=== PATIENT | female | born 1990 | race Caucasian/White ===

== ENCOUNTER 2017-01-30 19:05 | Emergency (ER) | payer SELFPAY ==
--- NOTE | 2017-01-30 19:23 | ER Document Report ---
ED Medical Screen (RME) - General Chief Complaint: Abdominal Pain Stated Complaint: ABDOMINAL PAIN Time Seen by Provider: 01/30/17 19:20 Notes: 26-year-old female patient complains of upper abdominal pain for 1 week with nausea, vomiting, and constipation. TRAVEL OUTSIDE OF THE [place] IN LAST 30 DAYS: No - Related Data Allergies/Adverse Reactions: No Known Allergies Allergy (Verified 01/30/17 19:17) Past Medical History Pulmonary Medical History: Reports: Hx Asthma Renal/ Medical History: Denies: Hx Peritoneal Dialysis Psychiatric Medical History: Reports: Hx Depression Past Surgical History: Reports: Hx Cholecystectomy, Hx Orthopedic Surgery - left radial/ ulnar fx rods placed, Hx Tonsillectomy - Immunizations Hx Diphtheria, Pertussis, Tetanus Vaccination: Yes Physical Exam - Vital signs Vitals: Temp Pulse Resp BP Pulse Ox 99.2 F 80 16 149/100 H 99 01/30/17 19:11 01/30/17 19:11 01/30/17 19:11 01/30/17 19:11 01/30/17 19:11 Course - Vital Signs Vital signs: Temp Pulse Resp BP Pulse Ox 99.2 F 80 16 149/100 H 99 01/30/17 19:11 01/30/17 19:11 01/30/17 19:11 01/30/17 19:11 01/30/17 19:11
[2017-01-30] MEDS ORDERED: METOCLOPRAMIDE HCL INJ/PF 10 MG/2 ML SDV IV ONE (20:06)
[2017-01-30] MEDS ORDERED: NORMAL SALINE 1000 ML 1,000 ML IV PRN (20:06)
[2017-01-30] MEDS ORDERED: DIPHENHYDRAMINE HCL 50 MG/ML VIAL IV ONE (20:06)
--- NOTE | 2017-01-30 20:10 | ER Document Report ---
ED General - General Chief Complaint: Abdominal Pain Stated Complaint: ABDOMINAL PAIN Time Seen by Provider: 01/30/17 19:20 Mode of Arrival: Ambulatory Information source: Patient Notes: The patient is a 26-year-old female who presents to the emergency room with nausea, vomiting, constipation and abdominal pain for the past 4 days. Patient states she was usual state of health until Thursday when her symptoms developed. She states she is normally very regular as far as her bowel movements but is been constipated. She does have a history of a cholecystectomy in the past. She denies any fever. She denies any vaginal discharge. She has a history of very irregular periods. TRAVEL OUTSIDE OF THE [place] IN LAST 30 DAYS: No - HPI Onset: Last week Onset/Duration: Gradual Quality of pain: Dull Severity: Moderate Associated symptoms: Nausea, Vomiting. denies: Chest pain, Fever, Shortness of breath Exacerbated by: Denies Relieved by: Denies Similar symptoms previously: Yes Recently seen / treated by doctor: No - Related Data Allergies/Adverse Reactions: No Known Allergies Allergy (Verified 01/30/17 19:17) Past Medical History - General Information source: Patient - Social History Smoking Status: Current Some Day Smoker Cigarette use (# per day): No Chew tobacco use (# tins/day): No Frequency of alcohol use: None Drug Abuse: None Lives with: Family Family History: Reviewed & Not Pertinent Patient has suicidal ideation: No Patient has homicidal ideation: No Pulmonary Medical History: Reports: Hx Asthma Endocrine Medical History: Reports: Hx Diabetes Mellitus Type 2 Renal/ Medical History: Denies: Hx Peritoneal Dialysis Psychiatric Medical History: Reports: Hx Depression Past Surgical History: Reports: Hx Cholecystectomy, Hx Orthopedic Surgery - left radial/ ulnar fx rods placed, Hx Tonsillectomy - Immunizations Hx Diphtheria, Pertussis, Tetanus Vaccination: Yes Review of Systems - Review of Systems Constitutional: denies: Chills, Fever EENT: No symptoms reported Cardiovascular: No symptoms reported Respiratory: No symptoms reported Gastrointestinal: See HPI Genitourinary: No symptoms reported Female Genitourinary: No symptoms reported Musculoskeletal: No symptoms reported Skin: No symptoms reported Hematologic/Lymphatic: No symptoms reported Neurological/Psychological: No symptoms reported Physical Exam - Vital signs Vitals: Temp Pulse Resp BP Pulse Ox 99.2 F 80 16 149/100 H 99 01/30/17 19:11 01/30/17 19:11 01/30/17 19:11 01/30/17 19:11 01/30/17 19:11 Notes: Physical exam: GENERAL: 26-year-old female, alert and oriented 3, complaining of left upper quadrant pain. HEAD: Atraumatic, normocephalic. EYES: Pupils equal round and reactive to light, extraocular movements intact, sclera anicteric, conjunctiva are normal. ENT: TMs normal, nares patent, oropharynx clear without exudates. Moist mucous membranes. NECK: Normal range of motion, supple without lymphadenopathy or JVD. LUNGS: Breath sounds clear to auscultation bilaterally and equal. No wheezes rales or rhonchi. HEART: Regular rate and rhythm without murmurs, rubs or gallops. ABDOMEN: Soft, normoactive bowel sounds. Patient does have tenderness in the left upper quadrant. No guarding, no rebound. No masses appreciated. Rectal: Brown stool, no masses, stool sent for study. EXTREMITIES: Normal range of motion, no pitting or edema. No clubbing or cyanosis. NEUROLOGICAL: Cranial nerves II through XII grossly intact. Normal speech, normal gait. PSYCH: Normal mood, normal affect. SKIN: Warm, Dry, normal turgor, no rashes or lesions noted. Course - Vital Signs Vital signs: Temp Pulse Resp BP Pulse Ox 97.9 F 84 18 138/95 H 99 01/30/17 23:49 01/30/17 23:49 01/30/17 23:49 01/30/17 23:49 01/30/17 23:49 - Laboratory Result Diagrams: 01/30/17 20:29 01/30/17 20:29 Laboratory results interpreted by me: 01/30/17 01/30/17 20:29 20:29 WBC 13.2 H RDW 14.6 H Absolute Neutrophils 9.1 H Total Bilirubin 1.6 H - Diagnostic Test Radiology reviewed: Image reviewed, Reports reviewed - CT of the abdomen shows no acute intra-abdominal process Discharge - Discharge Clinical Impression: Abdominal pain Condition: Stable Disposition: HOME, SELF-CARE Instructions: Abdominal Pain ([facility]) Additional Instructions: As we discussed, the CT of the abdomen as well as your labs looked quite good. Rest, drink plenty of fluids. Advance diet as tolerated. Try probiotics: Activitia (sold next to the milk and [employer]) twice daily for 2 weeks. Return to the emergency room for worsening pain, fever, pain moving to the right lower side. Take Reglan for nausea Prescriptions: Metoclopramide HCl [Reglan 10 mg Tablet] 1 - 2 tab PO ASDIR PRN #25 tablet PRN Reason: Referrals: VELMA LAURA DO [Primary Care Provider] - Follow up in 3-5 days
[2017-01-30 20:43] LABS: ABSOLUTE BASOPHILS # (AUTO) 0.1 10^3/uL (0.0-0.2); ABSOLUTE EOSINOPHILS # (AUTO) 0.2 10^3/uL (0.0-0.6); ABSOLUTE MONOCYTES (AUTO) 0.8 10^3/uL (0.1-1.4); ABSOLUTE NEUT (AUTO) 9.1 10^3/uL (1.7-8.2); BASOPHILS % (AUTO) 1.1 % (0-2); EOSINOPHILS % (AUTO) 1.2 % (0-6); HEMATOCRIT 41.8 % (36.0-47.0); HEMOGLOBIN 13.5 g/dL (12.0-15.5); HGB HCT DIFFERENCE -1.3; MEAN CORPUSCULAR HEMOGLOBIN 27.3 pg (27.0-33.4); MEAN CORPUSCULAR HGB CONC 32.4 g/dL (32.0-36.0); MEAN CORPUSCULAR VOLUME 84 fl (80-97); MONOCYTES % (AUTO) 5.8 % (3-13); RED BLOOD COUNT 4.96 10^6/uL (3.72-5.28); RED CELL DISTRIBUTION WIDTH 14.6 % (11.5-14.0); SEGMENTED NEUTROPHILS % (AUTO) 68.9 % (42-78); WHITE BLOOD COUNT 13.2 10^3/uL (4.0-10.5)
[2017-01-30 21:08] LABS: ALANINE AMINOTRANSFERASE 43 U/L (9-52); ALBUMIN 4.2 g/dL (3.5-5.0); ALKALINE PHOSPHATASE 79 U/L (38-126); ANION GAP 12 (5-19); ASPARTATE AMINO TRANSFERASE 35 U/L (14-36); BILIRUBIN,DIRECT 0.4 mg/dL (0.0-0.4); BILIRUBIN,TOTAL 1.6 mg/dL (0.2-1.3); BLOOD UREA NITROGEN 7 mg/dL (7-20); CALCIUM 9.2 mg/dL (8.4-10.2); CARBON DIOXIDE 23 mmol/L (22-30); CHLORIDE 106 mmol/L (98-107); CREATININE RESULT 0.88 mg/dL (0.52-1.25); GLUCOSE 89 mg/dL (75-110); LIPASE 59.4 U/L (23-300); POTASSIUM 3.7 mmol/L (3.6-5.0); SODIUM 140.7 mmol/L (137-145); TOTAL PROTEIN 7.7 g/dL (6.3-8.2)
--- NOTE | 2017-01-30 22:59 | RADIOLOGY REPORT (SQ) ---
EXAM DESCRIPTION: CT ABD/PELVIS WITH IV ORAL COMPLETED DATE/TIME: 01/30/2017 10:44 pm REASON FOR STUDY: abd pain COMPARISON: 03/13/2015 TECHNIQUE: CT scan of the abdomen and pelvis performed using helical scanning technique with dynamic intravenous contrast injection. No oral contrast. Images reviewed with lung, soft tissue, and bone windows. Reconstructed coronal and sagittal MPR images reviewed. Delayed images for evaluation of the urinary system also acquired. All images stored on PACS. All CT scanners at this facility use dose modulation, iterative reconstruction, and/or weight based d osing when appropriate to reduce radiation dose to as low as reasonably achievable (ALARA). [facility]: Dose Right [facility]: CareDose [facility]: Dose Right [facility]: Teradose 4D [facility]: [employer]fter CONTRAST TYPE AND DOSE: contrast/concentration: Isovue 370.00 mg/ml; Total Contrast Delivered: 100.0 ml; Total Saline Delivered: 72.0 ml RENAL FUNCTION: GFR > 60. RADIATION DOSE: Up-to-date CT equipment and radiation dose reduction techniques were employed. CTDIv ol: 29.7 - 30.0 mGy. DLP: 3447 mGy-cm.. LIMITATIONS: None. FINDINGS: LOWER CHEST: No significant findings. No nodules or infiltrates. LIVER: Normal size. No masses. No dilated ducts. SPLEEN: Normal size. No focal lesions. PANCREAS: No masses. No significant calcifications. No adjacent inflammation or peripancreatic fluid collections. Pancreatic duct not dilated. GALLBLADDER: No identified stones by CT criteria. No inflammatory changes to suggest cholecystitis. ADRENAL GLANDS: No significant masses or asymmetry. RIGHT KIDNEY AND URETER: No solid masses. No significant calcifications. No hydronephrosis or hyd roureter. LEFT KIDNEY AND URETER: No solid masses. Tiny cyst. No significant calcifications. No hydronephro sis or hydroureter. AORTA AND VESSELS: No aneurysm. No dissection. Renal arteries, SMA, celiac without stenosis. RETROPERITONEUM: No retroperitoneal adenopathy, hemorrhage or masses. BOWEL AND PERITONEAL CAVITY: No masses or inflammatory changes. No free fluid or peritoneal masses. APPENDIX: Normal. PELVIS: No mass. No free fluid. Normal bladder. ABDOMINAL WALL: No masses. No hernias. BONES: No significant or acute findings. OTHER: No other significant finding. IMPRESSION: NO ACUTE FINDING IN THE ABDOMEN OR PELVIS ON CT SCAN WITH IV CONTRAST. TECHNICAL DOCUMENTATION: JOB ID: [id number] Quality ID # [id number]: Final reports with documentation of one or more dose reduction techniques (e.g., Au tomated exposure control, adjustment of the mA and/or kV according to patient size, use of iterative reconstruction technique) 2010 [employer]- All Rights Reserved
[2017-01-30 23:52] VITALS: BP 138/95
== END 2017-01-30 23:49 | disposition home or self-care (01) ==
LOC: ER 19:05
DX: R10.9 Unspecified abdominal pain (principal); R11.2 Nausea with vomiting, unspecified; K59.00 Constipation, unspecified; Z98.890 Other specified postprocedural states; F17.200 Nicotine dependence, unspecified, uncomplicated
CPT/HCPCS: 99284; 96361; 96374; 96375; 36415; 84702; 83690; 85025; 82272; 80053; 74177; J1200; J2765; J7030

== ENCOUNTER 2017-10-01 10:03 | Emergency (ER) | payer SELFPAY ==
[2017-10-01] MEDS ORDERED: MAG HYDROX/AL HYDROX/SIMETH SUSP 30 ML UDCUP PO ONE (10:55)
[2017-10-01] MEDS ORDERED: LIDOCAINE 2% VISCOUS SOLN 20 ML UDCUP PO ONE (10:55)
[2017-10-01] MEDS ORDERED: METOCLOPRAMIDE HCL ORAL SOLN 10 MG/10 ML UDCUP PO ONE (10:55)
--- NOTE | 2017-10-01 10:56 | ER Document Report ---
ED GI/ - General Mode of Arrival: Ambulatory Information source: Patient TRAVEL OUTSIDE OF THE [place] IN LAST 30 DAYS: No - General Chief Complaint: Abdominal Pain Stated Complaint: VOMITING Time Seen by Provider: 10/01/17 10:34 Notes: Patient is a 26-year-old female who presents to the emergency department today with complaints of left upper quadrant abdominal pain. Patient states "there sometimes is a bump there". Patient states she has had the pain for 2 days and the pain comes and goes. Patient states her pain is exacerbated with movement. Patient goes on to mention that she has had unexplained vomiting in the mornings daily for the last 6 months. Patient mentions that she sometimes has a sour taste in her mouth as well. Patient denies dysuria or fevers. (PAMELA GEIGER) - Related Data Allergies/Adverse Reactions: No Known Allergies Allergy (Verified 04/17/17 23:29) Past Medical History - General Information source: Patient - Social History Smoking Status: Current Every Day Smoker Cigarette use (# per day): Yes Chew tobacco use (# tins/day): No Frequency of alcohol use: None Drug Abuse: None Lives with: Family Family History: Reviewed & Not Pertinent Patient has suicidal ideation: No Patient has homicidal ideation: No Pulmonary Medical History: Reports: Hx Asthma Endocrine Medical History: Reports: Hx Diabetes Mellitus Type 2 Psychiatric Medical History: Reports: Hx Depression Past Surgical History: Reports: Hx Cholecystectomy, Hx Orthopedic Surgery - left radial/ ulnar fx rods placed, Hx Tonsillectomy - Immunizations Hx Diphtheria, Pertussis, Tetanus Vaccination: Yes Review of Systems - Review of Systems Constitutional: denies: Fever EENT: No symptoms reported Cardiovascular: No symptoms reported Respiratory: No symptoms reported Gastrointestinal: See HPI, Abdominal pain Genitourinary: denies: Dysuria Female Genitourinary: No symptoms reported Musculoskeletal: No symptoms reported Skin: No symptoms reported Hematologic/Lymphatic: No symptoms reported Neurological/Psychological: No symptoms reported -: Yes All other systems reviewed and negative Physical Exam - Vital signs Vitals: Temp Pulse Resp BP Pulse Ox 97.9 F 68 14 141/82 H 99 10/01/17 10:12 10/01/17 10:12 10/01/17 10:12 10/01/17 10:12 10/01/17 10:12 - Notes Notes: Physical Exam: General: Alert, appears well. HEENT: Normocephalic. Atraumatic. PERRL. Extraocular movements intact. Oropharynx clear. Neck: Supple. Non-tender. Respiratory: No respiratory distress. Clear and equal breath sounds bilaterally. Cardiovascular: Regular rate and rhythm. Abdominal: Mild LUQ tenderness with palpation, no hernias palpated. No distension. Normal Bowel Sounds. Back: Non-tender. No deformity or step off. Extremities: Moves all four extremities. Upper extremities: Normal inspection. Normal ROM. Lower extremities: Normal inspection. No edema. Normal ROM. Neurological: Normal cognition. AAOx4. Normal speech. Psychological: Normal affect. Normal Mood. Skin: Warm. Dry. Normal color. (PAMELA GEIGER) Course - Re-evaluation Re-evalutation: 10/01/17 13:07 Patient u/s shows no acute findings, 2 day of pain, worse with movement. Will provide Zantac due to 6 months of unexplained vomiting. Will also provide 5 day steriod dose pack for MSK pain. Patient is to f/u with PCP in one week for re- evaluation. (HYUN VILLASENOR) - Vital Signs Vital signs: Temp Pulse Resp BP Pulse Ox 97.9 F 68 14 141/82 H 99 10/01/17 10:12 10/01/17 10:12 10/01/17 10:12 10/01/17 10:12 10/01/17 10:12 - Laboratory Laboratory results interpreted by me: 10/01/17 11:05 Urine Urobilinogen 2.0 H Discharge - Discharge Clinical Impression: Muscular abdominal pain in left flank Nausea & vomiting Qualifiers: Vomiting type: vomiting of fecal matter Qualified Code(s): R11.13 - Vomiting of fecal matter Instructions: Abdominal Pain ([facility]), Antinausea Medication ([facility]) Additional Instructions: Please take medications as prescribed, follow up with your primary care physician in one week for re-evalution. Prescriptions: Prednisone [Deltasone 20 mg Tablet] 40 mg PO DAILY 5 Days #10 tablet Ranitidine HCl [Zantac] 150 mg PO BID #60 tablet Scribe Documentation - Scribe Written by Za:: Za To, 10/01/2017, 1531 acting as scribe for :: Harpreet
[2017-10-01 11:28] LABS: APPEARANCE,URINE SLIGHTLY-CLOUDY; BILIRUBIN,URINE NEGATIVE (NEGATIVE); COLOR,URINE YELLOW; GLUCOSE, URINE NEGATIVE (NEGATIVE); KETONES,URINE NEGATIVE (NEGATIVE); LEUKOCYTE ESTERASE,URINE NEGATIVE (NEGATIVE); NITRITE,URINE NEGATIVE (NEGATIVE); PROTEIN,URINE NEGATIVE (NEGATIVE); URINE SPECIFIC GRAVITY 1.025
--- NOTE | 2017-10-01 13:01 | RADIOLOGY REPORT (SQ) ---
EXAM DESCRIPTION: U/S ABDOMEN LIMITED W/O DOP COMPLETED DATE/TIME: 10/01/2017 12:27 pm REASON FOR STUDY: LUQ pain, TTP, r/o hernia COMPARISON: None. TECHNIQUE: Static and real time fournier scale ultrasound images acquired of the left upper quadrant. Ad ditional color Doppler images acquired. LIMITATIONS: None. FINDINGS: MEASUREMENTS: The spleen measures 10.7 cm. No splenic masses are identified. ADJACENT SOFT TISSUES: Normal. No hernia sac is identified. OTHER: The left kidney measures 10.6 cm in length. No left renal abnormalities are identified. IMPRESSION: No significant findings. TECHNICAL DOCUMENTATION: JOB ID: [id number] [employer]- All Rights Reserved Reading location - IP/workstation name: [email or web address]
[2017-10-01 13:50] VITALS: BP 144/95
== END 2017-10-01 13:40 | disposition home or self-care (01) ==
LOC: ER 10:03
DX: R10.12 Left upper quadrant pain (principal); R11.10 Vomiting, unspecified; F17.210 Nicotine dependence, cigarettes, uncomplicated; E11.9 Type 2 diabetes mellitus without complications; Z90.49 Acquired absence of other specified parts of digestive tract
CPT/HCPCS: 99284; 81001; 76705; J3490

== ENCOUNTER 2017-10-07 11:03 | Emergency (ER) | payer SELFPAY ==
--- NOTE | 2017-10-07 11:16 | ER Document Report ---
ED Medical Screen (RME) - General Chief Complaint: Abdominal Pain Stated Complaint: ABDOMINAL PAIN Time Seen by Provider: 10/07/17 11:15 Notes: pt states she has painful mass on left side that increases in pain when she eats or bends. TRAVEL OUTSIDE OF THE [place] IN LAST 30 DAYS: No - Related Data Allergies/Adverse Reactions: No Known Allergies Allergy (Verified 10/07/17 11:06) Past Medical History Pulmonary Medical History: Reports: Hx Asthma Endocrine Medical History: Reports: Hx Diabetes Mellitus Type 2 Renal/ Medical History: Denies: Hx Peritoneal Dialysis Psychiatric Medical History: Reports: Hx Depression Past Surgical History: Reports: Hx Cholecystectomy, Hx Orthopedic Surgery - left radial/ ulnar fx rods placed, Hx Tonsillectomy - Immunizations Hx Diphtheria, Pertussis, Tetanus Vaccination: Yes Physical Exam - Vital signs Vitals: Temp Pulse Resp BP Pulse Ox 98.0 F 82 20 126/72 H 98 10/07/17 11:08 10/07/17 11:08 10/07/17 11:08 10/07/17 11:08 10/07/17 11:08 Course - Vital Signs Vital signs: Temp Pulse Resp BP Pulse Ox 98.0 F 82 20 126/72 H 98 10/07/17 11:08 10/07/17 11:08 10/07/17 11:08 10/07/17 11:08 10/07/17 11:08
[2017-10-07 11:47] LABS: ABSOLUTE BASOPHILS # (AUTO) 0.1 10^3/uL (0.0-0.2); ABSOLUTE EOSINOPHILS # (AUTO) 0.2 10^3/uL (0.0-0.6); ABSOLUTE LYMPHOCYTES (AUTO) 2.5 10^3/uL (0.5-4.7); ABSOLUTE MONOCYTES (AUTO) 0.5 10^3/uL (0.1-1.4); ABSOLUTE NEUT (AUTO) 6.5 10^3/uL (1.7-8.2); BASOPHILS % (AUTO) 0.8 % (0-2); EOSINOPHILS % (AUTO) 2.1 % (0-6); HEMATOCRIT 40.3 % (36.0-47.0); HEMOGLOBIN 13.4 g/dL (12.0-15.5); LYMPHOCYTES % (AUTO) 25.6 % (13-45); MEAN CORPUSCULAR HEMOGLOBIN 27.1 pg (27.0-33.4); MEAN CORPUSCULAR HGB CONC 33.2 g/dL (32.0-36.0); MEAN CORPUSCULAR VOLUME 82 fl (80-97); MONOCYTES % (AUTO) 5.5 % (3-13); PLATELET COUNT 360 10^3/uL (150-450); RED BLOOD COUNT 4.94 10^6/uL (3.72-5.28); RED CELL DISTRIBUTION WIDTH 14.9 % (11.5-14.0); TOTAL CELLS COUNTED % (AUTO) 100 %; WHITE BLOOD COUNT 9.9 10^3/uL (4.0-10.5)
[2017-10-07 11:48] LABS: APPEARANCE,URINE CLEAR; BILIRUBIN,URINE NEGATIVE (NEGATIVE); COLOR,URINE YELLOW; GLUCOSE, URINE NEGATIVE (NEGATIVE); KETONES,URINE NEGATIVE (NEGATIVE); LEUKOCYTE ESTERASE,URINE NEGATIVE (NEGATIVE); NITRITE,URINE NEGATIVE (NEGATIVE); PROTEIN,URINE NEGATIVE (NEGATIVE); URINE SPECIFIC GRAVITY 1.017; UROBILINOGEN,URINE NEGATIVE mg/dL (<2.0)
[2017-10-07 12:05] LABS: ALANINE AMINOTRANSFERASE 36 U/L (9-52); ALBUMIN 4.1 g/dL (3.5-5.0); ALKALINE PHOSPHATASE 61 U/L (38-126); ANION GAP 10 (5-19); ASPARTATE AMINO TRANSFERASE 19 U/L (14-36); BILIRUBIN,DIRECT 0.2 mg/dL (0.0-0.4); BILIRUBIN,TOTAL 0.7 mg/dL (0.2-1.3); BLOOD UREA NITROGEN 8 mg/dL (7-20); CALCIUM 9.7 mg/dL (8.4-10.2); CARBON DIOXIDE 30 mmol/L (22-30); CHLORIDE 104 mmol/L (98-107); GLUCOSE 100 mg/dL (75-110); POTASSIUM 4.7 mmol/L (3.6-5.0); SODIUM 143.6 mmol/L (137-145); TOTAL PROTEIN 7.1 g/dL (6.3-8.2)
--- NOTE | 2017-10-07 12:18 | ER Document Report ---
ED General - General Chief Complaint: Abdominal Pain Stated Complaint: ABDOMINAL PAIN Time Seen by Provider: 10/07/17 11:15 Mode of Arrival: Ambulatory Information source: Patient Notes: Patient presents with left-sided upper abdominal pain. She states that she feels a "mass" in this area. She states it hurts worse with bending over or eating. Patient was seen here approximately 6 days ago and had an ultrasound of the left upper quadrant. The ultrasound was unremarkable. She denies any trauma. No vomiting or diarrhea. No fevers. No other rashes. No problems with urination. Symptoms have been intermittent. The pain does radiate slightly upward. Symptoms of been mild to moderate. TRAVEL OUTSIDE OF THE [place] IN LAST 30 DAYS: No - Related Data Allergies/Adverse Reactions: No Known Allergies Allergy (Verified 10/07/17 11:06) Past Medical History - General Information source: Patient - Social History Smoking Status: Current Every Day Smoker Chew tobacco use (# tins/day): No Frequency of alcohol use: None Family History: Reviewed & Not Pertinent Patient has suicidal ideation: No Patient has homicidal ideation: No Pulmonary Medical History: Reports: Hx Asthma Endocrine Medical History: Reports: Hx Diabetes Mellitus Type 2 Renal/ Medical History: Denies: Hx Peritoneal Dialysis Psychiatric Medical History: Reports: Hx Depression Past Surgical History: Reports: Hx Cholecystectomy, Hx Orthopedic Surgery - left radial/ ulnar fx rods placed, Hx Tonsillectomy - Immunizations Hx Diphtheria, Pertussis, Tetanus Vaccination: Yes Review of Systems - Review of Systems Constitutional: denies: Chills, Fever Cardiovascular: denies: Chest pain, Palpitations Respiratory: denies: Cough, Short of breath -: Yes All other systems reviewed and negative Physical Exam - Vital signs Vitals: Temp Pulse Resp BP Pulse Ox 98.0 F 82 20 126/72 H 98 10/07/17 11:08 10/07/17 11:08 10/07/17 11:08 10/07/17 11:08 10/07/17 11:08 Interpretation: Normal - General General appearance: Appears well, Alert - HEENT Head: Normocephalic, Atraumatic Eyes: Normal Pupils: PERRL - Respiratory Respiratory status: No respiratory distress Chest status: Nontender Breath sounds: Normal Chest palpation: Normal - Cardiovascular Rhythm: Regular Heart sounds: Normal auscultation Murmur: No - Abdominal Inspection: Normal Distension: No distension Bowel sounds: Normal Tenderness: Tender, Other - Patient has a mildly tender small mobile mass in the left upper abdominal wall. Exam is most consistent with a lipoma. Organomegaly: No organomegaly - Back Back: Normal, Nontender - Extremities General upper extremity: Normal inspection, Nontender, Normal color, Normal ROM , Normal temperature General lower extremity: Normal inspection, Nontender, Normal color, Normal ROM , Normal temperature, Normal weight bearing. No: Raul's sign - Neurological Neuro grossly intact: Yes Cognition: Normal Orientation: AAOx4 [place] Coma Scale Eye Opening: Spontaneous [place] Coma Scale Verbal: Oriented [place] Coma Scale Motor: Obeys Commands Don Coma Scale Total: 15 Speech: Normal Motor strength normal: LUE, RUE, LLE, RLE Sensory: Normal - Psychological Associated symptoms: Normal affect, Normal mood - Skin Skin Temperature: Warm Skin Moisture: Dry Skin Color: Normal Course - Vital Signs Vital signs: Temp Pulse Resp BP Pulse Ox 98.0 F 82 20 126/72 H 98 10/07/17 11:08 10/07/17 11:08 10/07/17 11:08 10/07/17 11:08 10/07/17 11:08 - Laboratory Result Diagrams: 10/07/17 11:20 10/07/17 11:20 Laboratory results interpreted by me: 10/07/17 11:20 RDW 14.9 H Discharge - Discharge Clinical Impression: Lipoma Qualifiers: Lipoma location: trunk Qualified Code(s): D17.1 - Benign lipomatous neoplasm of skin and subcutaneous tissue of trunk Condition: Stable Disposition: HOME, SELF-CARE Prescriptions: Tramadol HCl [Ultram 50 mg Tablet] 50 mg PO Q4HP PRN 3 Days #12 tab PRN Reason: Referrals: SERGIO CAMPOS MD [Primary Care Provider] - Follow up in 3-5 days
[2017-10-07 12:42] VITALS: BP 124/76
== END 2017-10-07 12:58 | disposition home or self-care (01) ==
LOC: ER 11:03
DX: D17.1 Benign lipomatous neoplasm of skin and subcutaneous tissue of trunk (principal); R10.12 Left upper quadrant pain; F17.200 Nicotine dependence, unspecified, uncomplicated; J45.909 Unspecified asthma, uncomplicated; E11.9 Type 2 diabetes mellitus without complications; Z90.49 Acquired absence of other specified parts of digestive tract
CPT/HCPCS: 36415; 80053; 81001; 81025; 85025; 99284

== ENCOUNTER 2017-10-18 18:35 | Emergency (ER) | payer MEDICAID ==
--- NOTE | 2017-10-18 19:08 | EKG REPORT ---
SEVERITY:- NORMAL ECG - SINUS RHYTHM : Confirmed by: Tanner Mathis 18-Oct-2017 19:07:59
--- NOTE | 2017-10-18 19:19 | ER Document Report ---
ED Medical Screen (RME) - General Chief Complaint: Chest Pain Stated Complaint: ABDOMINAL PAIN,DIZZINESS,SHORT OF BREATH Time Seen by Provider: 10/18/17 19:10 Notes: 27-year-old morbidly obese female patient complaining of onset this morning of substernal chest pressure discomfort, and shortness of breath. Also she is more concerned about a painful lump in the lateral left upper quadrant of her abdomen. She has had this evaluated before, and told it was a lipoma however it is tender. Last menstrual period was in July, she says she can go up to 8-12 months without a period Lab work was ordered, was planning to do an IV contrast a CT scan of the abdomen to better evaluate this painful lump, but elected to get a d-dimer first on the outside chance that a scan of the chest might be needed. I have greeted and performed a rapid initial assessment of this patient. A comprehensive ED assessment and evaluation of the patient, analysis of test results and completion of the medical decision making process will be conducted by additional ED providers. TRAVEL OUTSIDE OF THE [place] IN LAST 30 DAYS: No - Related Data Allergies/Adverse Reactions: tramadol Adverse Reaction (Verified 10/18/17 18:41) Past Medical History - Social History Chew tobacco use (# tins/day): No Frequency of alcohol use: None Drug Abuse: None Pulmonary Medical History: Reports: Hx Asthma Endocrine Medical History: Reports: Hx Diabetes Mellitus Type 2 Renal/ Medical History: Denies: Hx Peritoneal Dialysis Psychiatric Medical History: Reports: Hx Depression Past Surgical History: Reports: Hx Cholecystectomy, Hx Orthopedic Surgery - left radial/ ulnar fx rods placed, Hx Tonsillectomy - Immunizations Hx Diphtheria, Pertussis, Tetanus Vaccination: Yes Physical Exam - Vital signs Vitals: Temp Pulse Resp BP Pulse Ox 97.9 F 96 18 138/94 H 98 10/18/17 18:51 10/18/17 18:51 10/18/17 18:51 10/18/17 18:51 10/18/17 18:51 Course - Vital Signs Vital signs: Temp Pulse Resp BP Pulse Ox 97.9 F 96 18 138/94 H 98 10/18/17 18:51 10/18/17 18:51 10/18/17 18:51 10/18/17 18:51 10/18/17 18:51
[2017-10-18 19:51] LABS: ABSOLUTE BASOPHILS # (AUTO) 0.1 10^3/uL (0.0-0.2); ABSOLUTE EOSINOPHILS # (AUTO) 0.4 10^3/uL (0.0-0.6); ABSOLUTE LYMPHOCYTES (AUTO) 3.3 10^3/uL (0.5-4.7); ABSOLUTE MONOCYTES (AUTO) 0.6 10^3/uL (0.1-1.4); ABSOLUTE NEUT (AUTO) 7.2 10^3/uL (1.7-8.2); BASOPHILS % (AUTO) 0.6 % (0-2); EOSINOPHILS % (AUTO) 3.4 % (0-6); HEMATOCRIT 41.1 % (36.0-47.0); HEMOGLOBIN 13.6 g/dL (12.0-15.5); LYMPHOCYTES % (AUTO) 28.8 % (13-45); MEAN CORPUSCULAR HGB CONC 33.1 g/dL (32.0-36.0); MEAN CORPUSCULAR VOLUME 82 fl (80-97); MONOCYTES % (AUTO) 5.1 % (3-13); PLATELET COUNT 396 10^3/uL (150-450); RED BLOOD COUNT 5.03 10^6/uL (3.72-5.28); RED CELL DISTRIBUTION WIDTH 14.4 % (11.5-14.0); SEGMENTED NEUTROPHILS % (AUTO) 62.1 % (42-78); TOTAL CELLS COUNTED % (AUTO) 100 %; WHITE BLOOD COUNT 11.6 10^3/uL (4.0-10.5)
[2017-10-18 19:54] LABS: APPEARANCE,URINE SLIGHTLY-CLOUDY; BILIRUBIN,URINE NEGATIVE (NEGATIVE); COLOR,URINE YELLOW; GLUCOSE, URINE NEGATIVE (NEGATIVE); KETONES,URINE NEGATIVE (NEGATIVE); LEUKOCYTE ESTERASE,URINE NEGATIVE (NEGATIVE); NITRITE,URINE NEGATIVE (NEGATIVE); PROTEIN,URINE NEGATIVE (NEGATIVE); URINE SPECIFIC GRAVITY 1.021; UROBILINOGEN,URINE NEGATIVE mg/dL (<2.0)
[2017-10-18] MEDS ORDERED: LIDOCAINE 2% VISCOUS SOLN 20 ML UDCUP PO ONE (20:03)
[2017-10-18] MEDS ORDERED: MAG HYDROX/AL HYDROX/SIMETH SUSP 30 ML UDCUP PO ONE (20:03)
--- NOTE | 2017-10-18 20:06 | ER Document Report ---
ED General - General Chief Complaint: Chest Pain Stated Complaint: ABDOMINAL PAIN,DIZZINESS,SHORT OF BREATH Time Seen by Provider: 10/18/17 19:10 Mode of Arrival: Ambulatory Information source: Patient Notes: Patient reports having chest pain that she describes as a tightness that started around 930 this morning. Patient complains of some mild shortness of breath. Patient denies any fever or cough. Patient does report a history of anxiety and panic attacks and states she has been off medicine for some time due to lack of insurance. Patient does report increased stress at home. Patient denies any recent travel, bedrest remobilization. Patient does report that she wakes up in the shading painter due to needing to vomit. Patient states she has been told before that she may have GERD. TRAVEL OUTSIDE OF THE [place] IN LAST 30 DAYS: No - HPI Onset: This morning Onset/Duration: Persistent Quality of pain: Other - Tightness Pain Level: 2 Associated symptoms: Chest pain. denies: Nausea, Vomiting, Sore throat Exacerbated by: Denies Relieved by: Denies Similar symptoms previously: No Recently seen / treated by doctor: No - Related Data Allergies/Adverse Reactions: tramadol Adverse Reaction (Verified 10/18/17 18:41) Past Medical History - General Information source: Patient - Social History Smoking Status: Current Every Day Smoker Chew tobacco use (# tins/day): No Smoking Education Provided: Yes Frequency of alcohol use: None Drug Abuse: None Occupation: None Lives with: Family Family History: Reviewed & Not Pertinent Patient has suicidal ideation: No Patient has homicidal ideation: No Pulmonary Medical History: Reports: Hx Asthma Renal/ Medical History: Denies: Hx Peritoneal Dialysis Psychiatric Medical History: Reports: Hx Anxiety, Hx Depression Past Surgical History: Reports: Hx Cholecystectomy, Hx Orthopedic Surgery - left radial/ ulnar fx rods placed, Hx Tonsillectomy - Immunizations Hx Diphtheria, Pertussis, Tetanus Vaccination: Yes Review of Systems - Review of Systems Constitutional: No symptoms reported. denies: Fever, Recent illness EENT: No symptoms reported Cardiovascular: Chest pain Respiratory: Short of breath. denies: Cough Gastrointestinal: No symptoms reported. denies: Abdominal pain, Nausea, Vomiting Genitourinary: No symptoms reported Female Genitourinary: No symptoms reported Musculoskeletal: No symptoms reported Skin: No symptoms reported Hematologic/Lymphatic: No symptoms reported Neurological/Psychological: Anxiety. denies: Homicidal ideation, Suicidal ideation Physical Exam - Vital signs Vitals: Temp Pulse Resp BP Pulse Ox 97.9 F 96 18 138/94 H 98 10/18/17 18:51 10/18/17 18:51 10/18/17 18:51 10/18/17 18:51 10/18/17 18:51 - General General appearance: Appears well, Alert, Anxious In distress: None - HEENT Head: Normocephalic Eyes: Normal Nasal: Normal Mouth/Lips: Normal Mucous membranes: Normal Neck: Normal, Supple - Respiratory Respiratory status: No respiratory distress Chest status: Tender Breath sounds: Normal Chest palpation: Tender - Chest pain reproducible with palpation. No: Ecchymosis - Cardiovascular Rhythm: Regular Heart sounds: S1 appreciated, S2 appreciated Murmur: No - Abdominal Inspection: Morbidly Obese Distension: No distension Bowel sounds: Normal Tenderness: Nontender Organomegaly: No organomegaly - Back Back: Normal, Nontender. No: CVA tenderness - Extremities General upper extremity: Normal inspection, Normal ROM General lower extremity: Normal inspection, Normal ROM - Neurological Neuro grossly intact: Yes Cognition: Normal [place] Coma Scale Eye Opening: Spontaneous [place] Coma Scale Verbal: Oriented [place] Coma Scale Motor: Obeys Commands Don Coma Scale Total: 15 - Psychological Associated symptoms: Anxious - Skin Skin Temperature: Warm Skin Moisture: Dry Skin Color: Normal Course - Re-evaluation Re-evalutation: 10/18/17 20:49 The patient has atypical chest pain as the patient's chest pain is not suggestive of pulmonary embolus, cardiac ischemia, aortic dissection, or other serious etiology. Given the extremely low risk of these diagnoses for the test in evaluation for these possibilities does not appear to be indicated at this time. Patient has been instructed to return if the symptoms worsen or change in any way. Patient with a heart score of 0. Patient does describe symptoms concerning for GERD given that she wakes up in the nighttime to vomit patient. Patient also acknowledges history of anxiety and depression and states that she has been under a lot of stress. Patient occasionally tearful during her ER stay here today. Patient denies any suicidal or homicidal ideation - Vital Signs Vital signs: Temp Pulse Resp BP Pulse Ox 98.4 F 65 16 126/97 H 100 10/18/17 21:02 10/18/17 21:02 10/18/17 21:02 10/18/17 21:02 10/18/17 21:02 - Laboratory Result Diagrams: 10/18/17 19:36 10/18/17 19:36 Laboratory results interpreted by me: 10/18/17 10/18/17 19:36 19:36 WBC 11.6 H RDW 14.4 H Sodium 146.3 H 10/18/17 20:48 Labs- Entire Visit 10/18/17 10/18/17 10/18/17 19:36 19:36 19:36 WBC 11.6 H RBC 5.03 Hgb 13.6 Hct 41.1 MCV 82 MCH 27.0 MCHC 33.1 RDW 14.4 H Plt Count 396 Seg Neutrophils % 62.1 Lymphocytes % 28.8 Monocytes % 5.1 Eosinophils % 3.4 Basophils % 0.6 Absolute Neutrophils 7.2 Absolute Lymphocytes 3.3 Absolute Monocytes 0.6 Absolute Eosinophils 0.4 Absolute Basophils 0.1 D-Dimer 0.36 Sodium 146.3 H Potassium 4.2 Chloride 103 Carbon Dioxide 27 Anion Gap 16 BUN 8 Creatinine 0.97 Est GFR ( Amer) > 60 Est GFR (Non-Af Amer) > 60 Glucose 100 Calcium 10.1 Total Bilirubin 0.7 Direct Bilirubin 0.2 Neonat Total Bilirubin Not Reportable Neonat Direct Bilirubin Not Reportable Neonat Indirect Bili Not Reportable AST 19 ALT 30 Alkaline Phosphatase 69 Creatine Kinase 56 Troponin I Total Protein 7.4 Albumin 4.2 Urine Color Urine Appearance Urine pH Ur Specific [place] Urine Protein Urine Glucose (UA) Urine Ketones Urine Blood Urine Nitrite Urine Bilirubin Urine Urobilinogen Ur Leukocyte Esterase Urine WBC (Auto) Urine RBC (Auto) Squamous Epi Cells Auto Urine Mucus (Auto) Urine Ascorbic Acid Urine HCG, Qual 10/18/17 10/18/17 10/18/17 19:36 19:36 19:36 WBC RBC Hgb Hct MCV MCH MCHC RDW Plt Count Seg Neutrophils % Lymphocytes % Monocytes % Eosinophils % Basophils % Absolute Neutrophils Absolute Lymphocytes Absolute Monocytes Absolute Eosinophils Absolute Basophils D-Dimer Sodium Potassium Chloride Carbon Dioxide Anion Gap BUN Creatinine Est GFR ( Amer) Est GFR (Non-Af Amer) Glucose Calcium Total Bilirubin Direct Bilirubin Neonat Total Bilirubin Neonat Direct Bilirubin Neonat Indirect Bili AST ALT Alkaline Phosphatase Creatine Kinase Troponin I < 0.012 Total Protein Albumin Urine Color YELLOW Urine Appearance SLIGHTLY-CLOUDY Urine pH 6.0 Ur Specific [place] 1.021 Urine Protein NEGATIVE Urine Glucose (UA) NEGATIVE Urine Ketones NEGATIVE Urine Blood NEGATIVE Urine Nitrite NEGATIVE Urine Bilirubin NEGATIVE Urine Urobilinogen NEGATIVE Ur Leukocyte Esterase NEGATIVE Urine WBC (Auto) 0 Urine RBC (Auto) 1 Squamous Epi Cells Auto 4 Urine Mucus (Auto) RARE Urine Ascorbic Acid NEGATIVE Urine HCG, Qual NEGATIVE - Diagnostic Test Radiology reviewed: Reports reviewed - EKG Interpretation by Me EKG shows normal: Sinus rhythm Rate: Normal Rhythm: NSR Discharge - Discharge Clinical Impression: Anxiety Chest pain Qualifiers: Chest pain type: unspecified Qualified Code(s): R07.9 - Chest pain, unspecified GERD (gastroesophageal reflux disease) Qualifiers: Esophagitis presence: esophagitis presence not specified Qualified Code(s): K21.9 - Gastro-esophageal reflux disease without esophagitis Condition: Stable Disposition: HOME, SELF-CARE Instructions: Anxiety ([facility]), Chest Pain of Unclear Cause ([facility]), Prilosec (Acid Pump Inhibitor) ([facility]), Reflux Disease (GERD) ([facility]) Additional Instructions: Return immediately for any new or worsening symptoms Followup with your primary care provider, call tomorrow to make a followup appointment Prescriptions: Hydroxyzine HCl [Atarax 25 mg Tablet] 2 tab PO TID PRN #24 tablet PRN Reason: Omeprazole Magnesium [Prilosec Otc] 20 mg PO DAILY #15 tablet.dr Forms: Smoking Cessation Education Referrals: [facility] [Provider Group] - Follow up as needed [facility] [Provider Group] - Follow up as needed
[2017-10-18 20:11] LABS: ALANINE AMINOTRANSFERASE 30 U/L (9-52); ALBUMIN 4.2 g/dL (3.5-5.0); ALKALINE PHOSPHATASE 69 U/L (38-126); ANION GAP 16 (5-19); ASPARTATE AMINO TRANSFERASE 19 U/L (14-36); BILIRUBIN,DIRECT 0.2 mg/dL (0.0-0.4); BILIRUBIN,TOTAL 0.7 mg/dL (0.2-1.3); BLOOD UREA NITROGEN 8 mg/dL (7-20); CALCIUM 10.1 mg/dL (8.4-10.2); CARBON DIOXIDE 27 mmol/L (22-30); CHLORIDE 103 mmol/L (98-107); CREATINE KINASE 56 U/L (30-135); GLUCOSE 100 mg/dL (75-110); POTASSIUM 4.2 mmol/L (3.6-5.0); SODIUM 146.3 mmol/L (137-145); TOTAL PROTEIN 7.4 g/dL (6.3-8.2)
--- NOTE | 2017-10-18 20:31 | RADIOLOGY REPORT (SQ) ---
EXAM DESCRIPTION: CHEST 2 VIEWS COMPLETED DATE/TIME: 10/18/2017 8:18 pm REASON FOR STUDY: cp COMPARISON: 2015. TECHNIQUE: Frontal and lateral radiographic views of the chest acquired. NUMBER OF VIEWS: Two view. LIMITATIONS: None. FINDINGS: LUNGS AND PLEURA: No opacities, masses or pneumothorax. No pleural effusion. MEDIASTINUM AND HILAR STRUCTURES: No masses or contour abnormalities. HEART AND VASCULAR STRUCTURES: Heart normal size. No evidence for failure. BONES: No acute findings. HARDWARE: None in the chest. OTHER: No other significant finding. IMPRESSION: NO SIGNIFICANT RADIOGRAPHIC FINDING IN THE CHEST. TECHNICAL DOCUMENTATION: JOB ID: [id number] [employer]- All Rights Reserved Reading location - IP/workstation name: [email or web address]
[2017-10-18] MEDS ORDERED: HYDROXYZINE PAMOATE 50 MG CAPSULE PO ONE (20:56)
[2017-10-18 21:06] VITALS: BP 126/97
== END 2017-10-18 21:07 | disposition home or self-care (01) ==
LOC: ER 18:35
DX: R07.9 Chest pain, unspecified (principal); R42 Dizziness and giddiness; F41.9 Anxiety disorder, unspecified; R06.02 Shortness of breath; K21.9 Gastro-esophageal reflux disease without esophagitis; F17.200 Nicotine dependence, unspecified, uncomplicated; Z88.6 Allergy status to analgesic agent; Z90.49 Acquired absence of other specified parts of digestive tract
CPT/HCPCS: 93005; 99285; 36415; 82550; 85025; 81025; 80053; 81001; 84484; 85379; 71046; 93010; J3490 ×3

== ENCOUNTER → 2017-11-17 | Outpatient (CLI) | payer MEDICAID ==
--- NOTE | 2017-11-17 10:25 | RADIOLOGY REPORT (SQ) ---
EXAM DESCRIPTION: CT ABD/PELVIS WITH IV ORAL COMPLETED DATE/TIME: 11/17/2017 9:49 am REASON FOR STUDY: UNSPECIFIED ABDOMINAL PAIN R10.9 UNSPECIFIED ABDOMINAL PAIN COMPARISON: 01/30/2017. TECHNIQUE: CT scan of the abdomen and pelvis performed using helical scanning technique with dynamic intravenous contrast injection. No oral contrast. Images reviewed with lung, soft tissue, and bone windows. Reconstructed coronal and sagittal MPR images reviewed. Delayed images for evaluation of the urinary system also acquired. All images stored on PACS. All CT scanners at this facility use dose modulation, iterative reconstruction, and/or weight based d osing when appropriate to reduce radiation dose to as low as reasonably achievable (ALARA). [facility]: Dose Right [facility]: CareDose [facility]: Dose Right [facility]: Teradose 4D [facility]: Scint-X CONTRAST TYPE AND DOSE: 100 mL Isovue 370- low osmolar. RENAL FUNCTION: BUN 8 creatinine 0.97. RADIATION DOSE: CT Rad equipment meets quality standard of care and radiation dose reduction techniq ues were employed. CTDIvol: 25.7 - 29.4 mGy. DLP: 3287 mGy-cm.. LIMITATIONS: None. FINDINGS: LOWER CHEST: No significant findings. No nodules or infiltrates. LIVER: Normal size. Diffuse fatty infiltration. No masses. No dilated ducts. SPLEEN: Normal size. No focal lesions. PANCREAS: No masses. No significant calcifications. No adjacent inflammation or peripancreatic fluid collections. Pancreatic duct not dilated. GALLBLADDER: Surgically absent. ADRENAL GLANDS: No significant masses or asymmetry. RIGHT KIDNEY AND URETER: No solid masses. No significant calcifications. No hydronephrosis or hyd roureter. LEFT KIDNEY AND URETER: No solid masses. No significant calcifications. No hydronephrosis or hydr oureter. AORTA AND VESSELS: No aneurysm. No dissection. Renal arteries, SMA, celiac without stenosis. RETROPERITONEUM: No retroperitoneal adenopathy, hemorrhage or masses. BOWEL AND PERITONEAL CAVITY: No masses or inflammatory changes. No free fluid or peritoneal masses. APPENDIX: Normal. PELVIS: No mass. No free fluid. Normal bladder. ABDOMINAL WALL: No masses. Small umbilical hernia containing fat. No involvement of bowel. BONES: No significant or acute findings. OTHER: No other significant finding. IMPRESSION: 1. SMALL UMBILICAL HERNIA CONTAINING FAT. NO INVOLVEMENT OF BOWEL. 2. FATTY INFILTRATION OF THE LIVER. 3. NO OTHER SIGNIFICANT OR ACUTE FINDING IN THE ABDOMEN OR PELVIS ON CT SCAN WITH IV CONTRAST. TECHNICAL DOCUMENTATION: JOB ID: [id number] Quality ID # [id number]: Final reports with documentation of one or more dose reduction techniques (e.g., Au tomated exposure control, adjustment of the mA and/or kV according to patient size, use of iterative reconstruction technique) 2010 [employer]- All Rights Reserved Reading location - IP/workstation name: [email or web address]
== END ==
LOC: RAD 08:49
PROVIDERS: ATTEND Family Medicine
DX: R10.9 Unspecified abdominal pain (principal); K76.0 Fatty (change of) liver, not elsewhere classified
CPT/HCPCS: 74177

== ENCOUNTER 2019-07-14 13:13 | Emergency (ER) | payer MEDICAID ==
[2019-07-14 14:07] VITALS: BP 144/105
[2019-07-14] MEDS ORDERED: METHYLPREDNISOLONE INJ 125 MG/2 ML SDV IV ONE (14:12)
[2019-07-14] MEDS ORDERED: KETOROLAC TROMETHAMINE INJ/PF 30 MG/1 ML SDV IV ONE (14:12)
[2019-07-14] MEDS ORDERED: IPRATROPIUM/ALBUTEROL 0.5-2.5 MG/3 ML AMPUL NEB ONE (14:12)
--- NOTE | 2019-07-14 14:13 | ER Document Report ---
ED Medical Screen (RME) - General Chief Complaint: Chest Pain Stated Complaint: CHEST PAIN Time Seen by Provider: 07/14/19 14:04 Primary Care Provider: KAYLAN DURAN MD [Primary Care Provider] - Follow up as needed TRAVEL OUTSIDE OF THE [place] IN LAST 30 DAYS: No - HPI Notes: 07/14/19 14:40 28-year-old female to the emergency department with complaints of chest pain, shortness of breath has been getting worse since Thursday. She states that she had kind of an upper respiratory syndrome the week before but it seemed to get better. She states that on Thursday she started to feel like something was sitting on her chest and she was really having a hard time breathing. She also reports that she has had swelling into her right axilla for several weeks now. She denies any fevers or chills. I performed a brief medical screening exam on the patient determined that she will need further evaluation and management by main side provider. 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 Patient is wheezing on exam so did order her nebulizer and steroids. - Related Data Allergies/Adverse Reactions: tramadol Adverse Reaction (Verified 10/18/17 18:41) Past Medical History Pulmonary Medical History: Reports: Hx Asthma Endocrine Medical History: Reports: Hx Diabetes Mellitus Type 2 Renal/ Medical History: Denies: Hx Peritoneal Dialysis Psychiatric Medical History: Reports: Hx Anxiety, Hx Depression Past Surgical History: Reports: Hx Cholecystectomy, Hx Orthopedic Surgery - left radial/ ulnar fx rods placed, Hx Tonsillectomy - Immunizations Hx Diphtheria, Pertussis, Tetanus Vaccination: Yes Physical Exam - Vital signs Vitals: Temp Pulse Resp BP Pulse Ox 99.4 F 77 20 155/94 H 97 07/14/19 13:29 07/14/19 13:29 07/14/19 13:29 07/14/19 13:29 07/14/19 13:29 Course - Vital Signs Vital signs: Temp Pulse Resp BP Pulse Ox 98.5 F 63 16 144/105 H 100 07/14/19 14:02 07/14/19 14:02 07/14/19 14:02 07/14/19 14:02 07/14/19 14:02 Doctor's Discharge - Discharge Referrals: KAYLAN DURAN MD [Primary Care Provider] - Follow up as needed
--- NOTE | 2019-07-14 14:48 | RADIOLOGY REPORT (SQ) ---
EXAM DESCRIPTION: CHEST 2 VIEWS COMPLETED DATE/TIME: 07/14/2019 2:26 pm REASON FOR STUDY: chest pain, SOB, wheezing COMPARISON: 10/18/2017 EXAM PARAMETERS: NUMBER OF VIEWS: two views TECHNIQUE: Digital Frontal and Lateral radiographic views of the chest acquired. RADIATION DOSE: NA LIMITATIONS: none FINDINGS: LUNGS AND PLEURA: No opacities, masses or pneumothorax. No pleural effusion. MEDIASTINUM AND HILAR STRUCTURES: No masses or contour abnormalities. HEART AND VASCULAR STRUCTURES: Heart normal size. No evidence for failure. BONES: No acute findings. HARDWARE: None in the chest. OTHER: No other significant finding. IMPRESSION: NO ACUTE RADIOGRAPHIC FINDING IN THE CHEST. TECHNICAL DOCUMENTATION: JOB ID: [id number] [employer]- All Rights Reserved Reading location - IP/workstation name: [email or web address]
[2019-07-14 14:50] LABS: ABSOLUTE LYMPHOCYTES (AUTO) 2.4 10^3/uL (0.5-4.7); ABSOLUTE MONOCYTES (AUTO) 0.5 10^3/uL (0.1-1.4); ABSOLUTE NEUT (AUTO) 3.4 10^3/uL (1.7-8.2); BASOPHILS % (AUTO) 0.3 % (0-2); EOSINOPHILS % (AUTO) 0.6 % (0-6); HEMATOCRIT 43.6 % (36.0-47.0); HEMOGLOBIN 14.7 g/dL (12.0-15.5); LYMPHOCYTES % (AUTO) 37.8 % (13-45); MEAN CORPUSCULAR HEMOGLOBIN 27.7 pg (27.0-33.4); MEAN CORPUSCULAR HGB CONC 33.8 g/dL (32.0-36.0); MEAN CORPUSCULAR VOLUME 82 fl (80-97); MONOCYTES % (AUTO) 7.3 % (3-13); PLATELET COUNT 289 10^3/uL (150-450); RED BLOOD COUNT 5.31 10^6/uL (3.72-5.28); RED CELL DISTRIBUTION WIDTH 13.9 % (11.5-14.0); TOTAL CELLS COUNTED % (AUTO) 100 %; WHITE BLOOD COUNT 6.3 10^3/uL (4.0-10.5)
[2019-07-14 15:09] LABS: ALBUMIN 4.1 g/dL (3.5-5.0); ALKALINE PHOSPHATASE 60 U/L (38-126); ANION GAP 7 (5-19); ASPARTATE AMINO TRANSFERASE 58 U/L (14-36); BILIRUBIN,TOTAL 1.4 mg/dL (0.2-1.3); BLOOD UREA NITROGEN 6 mg/dL (7-20); CALCIUM 9.1 mg/dL (8.4-10.2); CARBON DIOXIDE 30 mmol/L (22-30); CHLORIDE 104 mmol/L (98-107); GLUCOSE 106 mg/dL (75-110); POTASSIUM 4.2 mmol/L (3.6-5.0); TOTAL PROTEIN 7.2 g/dL (6.3-8.2)
--- NOTE | 2019-07-15 13:02 | EKG REPORT ---
SEVERITY:- NORMAL ECG - SINUS RHYTHM : Confirmed by: Tanner Mathis 15-Jul-2019 13:01:09
== END 2019-07-14 16:30 | disposition left against medical advice (07) ==
LOC: ER 13:13
DX: R07.9 Chest pain, unspecified (principal); R06.02 Shortness of breath; E11.9 Type 2 diabetes mellitus without complications; Z90.49 Acquired absence of other specified parts of digestive tract
CPT/HCPCS: 93005; 36415; 84703; 85025; 80053; 71046; 93010; J7620